=== PATIENT | female | born 1960 | race Caucasian/White ===

== ENCOUNTER 2018-12-20 21:01 | Observation (INO) | payer OTHER | END 2018-12-22 15:05 | disposition home or self-care (01) | LOC: ER FS 21:01 → 4TH 12-21 00:15 ==

== ENCOUNTER 2018-12-27 14:53 | Outpatient (RCR) | payer OTHER ==
[~2018-12-27 14:53] MED LIST changes: -CETI10CA PO; -MULT-974 PO; -NITR-65 PO; -PHEN-640 PO
[2018-12-31] MEDS ORDERED: CETI10CA PO (10:27)
[2018-12-31] MEDS ORDERED: MULT-974 PO (10:27)
[2018-12-31] MEDS ORDERED: NITR-65 PO (12:13)
[2018-12-31] MEDS ORDERED: PHEN-640 PO (12:13)
== END 2019-03-27 | disposition home or self-care (01) ==
LOC: LAB 14:53
PROVIDERS: ATTEND Urology
DX: N20.9 Urinary calculus, unspecified (principal)
CPT/HCPCS: 88300

== ENCOUNTER → 2018-12-27 | Outpatient (CLI) | payer OTHER ==
[~2018-12-27] MED LIST: ASCO-262 PO; CETI10CA PO; HYDR-34 PO; MULT-974 PO; NITR-65 PO; PHEN-640 PO; TAMS0.4C98 PO; VITA1CAP PO; VITA400C60 PO; [UNRECOGNIZED DRUG - REMARK] PO
--- NOTE | 2018-12-27 14:10 | Diagnostic Imaging Report ---
REASON FOR EXAM: STONES COMPARISON: CT abdomen and pelvis on 12/20/2018. TECHNIQUE: frontal supine views of the abdomen FINDINGS: The bowel gas pattern is nondistended. No large collection of free intraperitoneal air is seen. Scattered moderate amounts of gas and fecal material are present in the colon. Punctate calcifications are seen in the pelvis bilaterally, representing phleboliths. The previously described 4 mm urolithiasis may also be present although this is difficult to distinguish between a phlebolith. The osseous structures are age-appropriate. IMPRESSION: 1. Multiple punctate calculi in the pelvis, which may represent phleboliths and/or the previously visualized left distal urolithiasis. 2. No evidence of bowel obstruction or large collection of free intraperitoneal air. Dictated by: Dictated on workstation # [id number]
== END ==
LOC: RAD 12:44
PROVIDERS: ATTEND Urology
DX: N20.2 Calculus of kidney with calculus of ureter (principal)
CPT/HCPCS: 74018

== ENCOUNTER 2018-12-31 09:15 | Day surgery (SDC) | payer OTHER ==
[~2018-12-31] VITALS: Ht 154.9 cm; Wt 63.6 kg
[2018-12-31] VITALS (10 sets, daily range): BP systolic 90–130; BP diastolic 50–87
[2018-12-31] MEDS ORDERED: LACTATED RINGERS 1,000 ML IV PRN (09:27)
[2018-12-31] MEDS ORDERED: SCOPOLAMINE 1.5 MG (TRANSDERM-SCOP) PATCH TOP ONE (09:30)
[2018-12-31] MEDS ORDERED: FAMOTIDINE 20MG/2ML IV (PEPCID) IV ONE (09:30)
[2018-12-31] MEDS ORDERED: ONDANSETRON 4 MG/2 ML (SDV) Z0FRAN IV ONE (09:30)
[2018-12-31] MEDS ORDERED: MIDAZOLAM 2 MG/2 ML (VERSED) VIAL ONE (09:32)
[2018-12-31] MEDS ORDERED: fentaNYL INJECTION 100 MCG/2 ML AMP ONE (09:33)
--- NOTE | 2018-12-31 09:48 | Progress Note-Pre Operative ---
Pre-Operative Progress Note H&P Reviewed The H&P was reviewed, patient examined and no changes noted. Date Seen by Provider: Dec 31, 2018 Time Seen by Provider: 09:47 Date H&P Reviewed: Dec 31, 2018 Time H&P Reviewed: 09:47 Pre-Operative Diagnosis: LT DISTAL URETERAL AND RENAL STONES MARY WELLER MD Dec 31, 2018 09:48
[2018-12-31] MEDS ORDERED: WATER (STERILE) FOR INJECTION 10 ML ONE (09:49)
[2018-12-31] MEDS ORDERED: cefTRIAXone 1,000 MG IV (ROCEPHIN) VIAL ONE (09:49)
--- NOTE | 2018-12-31 09:49 | Progress Note-Post Operative ---
Post-Operative Progess Note Surgeon (s)/Gaggerman (s) Surgeon MARY WELLER MD Gaggerman: NONE Pre-Operative Diagnosis LT DISTAL URETERAL AND RENAL STONES Post-Operative Diagnosis SAME Procedure & Operative Findings Date of Procedure 12/31/18 Procedure Performed/Findings LT URETEROSCOPY WITH STONE LITHOTRIPSY AND RETROGRADE UROGRAM Anesthesia Type GENERAL Estimated Blood Loss Estimated blood loss (mL): NONE Specimens/Packing Specimens Removed NONE Packing: NONE MARY WELLER MD Dec 31, 2018 09:48
--- NOTE | 2018-12-31 09:51 | Discharge Inst-Urology ---
Discharge Inst-Urology Discharge Medications New, Converted, or Re-newed RX: RX on Chart Patient Instructions/Follow Up Plan Please make appointment to been seen in office in 6 weeks. Lab to provide patient with kit and instructions to do o.p stone risk profile Increase oral fluids for 48 hours and then as needed. Diet and Activity as tolerated. If questions or concerns contact your physician Or seek help at emergency department. MARY WELLER MD Dec 31, 2018 09:51
--- NOTE | 2018-12-31 09:52 | Diagnostic Imaging Report ---
Indication: Left ureteral stone. Study is performed prior to surgery. Supine image of the abdomen reveals mild to moderate amount of stool throughout the colon which limits evaluation. There are rounded calcifications seen bilaterally within the pelvis which most likely represent phleboliths. Possibility of distal ureteric calculus is not fully excluded. There is no evidence of bowel obstruction. No free intraperitoneal gas or pneumatosis is seen. Impression: Multiple rounded calcifications in the pelvis bilaterally are likely due to phlebolith although possibility of distal ureteric stone cannot be fully excluded. Remainder of the abdomen is unremarkable. Dictated by: Dictated on workstation # [id number]
[2018-12-31] MEDS: LACTATED RINGERS 1,000 ML IV PRN ×2 (09:53→10:58)
[2018-12-31 10:10] LABS: PHOSPHORUS 3.4 MG/DL (2.3-4.7); URIC ACID 3.4 MG/DL (2.6-7.2)
[2018-12-31] MEDS ORDERED: cefTRIAXone 1,000 MG/SWFI 10 ML IV PUSH IV ONE ×2 (10:15)
[2018-12-31] MEDS ORDERED: PHENYLEPHRINE 100 MCG/ML 10 ML (ANESTHESIA) SYR ONE (10:21)
[2018-12-31] MEDS ORDERED: LIDOCAINE PF 2% 5 ML (XYLOCAINE) VIAL ONE (10:21)
[2018-12-31] MEDS ORDERED: SEVOFLURANE (ULTANE) 15 ML INHAL SOLN ONE ×2 (10:21→10:38)
[2018-12-31] MEDS ORDERED: ONDANSETRON 4 MG/2 ML (SDV) Z0FRAN ONE (10:21)
[2018-12-31] MEDS ORDERED: proPOfol 200 MG/20 ML (DIPRIVAN) VIAL IV ONE (10:21)
[2018-12-31] MEDS ORDERED: ROCURONIUM 10 MG/ML 5 ML SYRINGE IV ONE (10:21)
[2018-12-31] MEDS ORDERED: MULT-974 PO (10:27)
[2018-12-31] MEDS ORDERED: CETI10CA PO (10:27)
[2018-12-31] MEDS ORDERED: GLYCOPYRROLATE 0.2 MG/ML (ROBINUL) 2 ML VIAL ONE (10:38)
[2018-12-31] MEDS ORDERED: NEOSTIGMINE 3 MG/3 ML VIAL ONE (10:38)
[2018-12-31] MEDS ORDERED: IOPAMIDOL 61% 30 ML (ISOVUE 300) VIAL IV ONE (10:57)
[2018-12-31] MEDS ORDERED: MEPERIDINE (DEMEROL) INJ 50 MG/ML IVP ONE (11:15)
[2018-12-31] MEDS ORDERED: morphine INJ 10 MG/ML 1ML (SYR OR VIAL) IVP ONE (11:15)
[2018-12-31] MEDS ORDERED: ONDANSETRON 4 MG/2 ML (SDV) Z0FRAN IVP PRN (11:15)
--- NOTE | 2018-12-31 11:45 | NUR ---
TO AMB SURG FROM PAR PER CART. ALERT, DENIES PAIN, BUT STATES "I HAVE TO PEE REALLY BAD." ASSIST UP TO BR, GAIT STEADY, VOIDS 400 CC CLEAR YELLOW URINE WITHOUT PROBLEM. ASSIST BACK TO ROOM, PO FLUIDS PROVIDED. BED LOW, LOCKED, RAILS UP X2. CALL LIGHT TO PT AND FAMILY AT SIDE.
[2018-12-31] MEDS ORDERED: PHEN-640 PO (12:13)
[2018-12-31] MEDS ORDERED: NITR-65 PO (12:13)
--- NOTE | 2018-12-31 13:00 | NUR ---
NO CHANGE IN ASSESSMENT, CONTINUES TO VOID CLEAR, YELLOW URINE WITHOUT PROBLEM.
--- NOTE | 2018-12-31 13:15 | NUR ---
24 HR URINE COLLECTION JUG AND INSTRUCTIONS PROVIDED TO PT PER ORDER. READY FOR DISMISSAL.
--- NOTE | 2018-12-31 20:12 | OPERATIVE REPORT ---
DATE OF SERVICE: 12/31/2018 PREOPERATIVE DIAGNOSIS: Left distal ureteral and renal stones. POSTOPERATIVE DIAGNOSIS: Left distal ureteral and renal stones. OPERATION PERFORMED: Left ureteroscopy with stone lithotripsy and retrograde urogram. SURGEON: Delon Weller MD ANESTHESIA: General. COMPLICATIONS: None. PROCEDURE: The patient under general anesthesia in the lithotomy position, genitalia were prepped and draped in the usual sterile fashion. Noted the vaginal prolapse of a 2+ cystorectocele. Cystoscope was introduced under vision. The bladder was normal. Ureteric orifices normal in shape, size and configuration with clear efflux, somewhat sluggish on the left side. Using the foroblique lens, I dilated the left ureteral orifice intramural portion to accommodate a 6.9 [place] semi-rigid ureteroscope, visualized the stone, broke it up with lithoclast then performed the retrograde urogram to confirm the integrity of the ureter. No filling defect and complete emptying of the system and there was an area that looked like a filling defect; however, it was an air bubble that was visualized by the ureteroscope as well. At that air bubble passed and a retrograde again and it was free. The ureteroscope was removed. The patient tolerated the procedure and anesthesia well and was sent to recovery room in stable condition. Job ID: [id number] DocumentID: [id number] Dictated Date: 12/31/2018 10:46:36 Marine Resource Economist Date: 12/31/2018 20:11:10 Dictated By: DELON WELLER MD
--- OUTSIDE RECORDS SUMMARY | 2018-12-31 21:53 | XMS REPORT | Continuity of Care Document ---
Author Organization Unknown Address Unknown Allergies There is no data. Medications There is no data. Problems There is no data. Procedures There is no data. Results Test Result Range CULTURE, URINE - 12/25/18 18:38 CULTURE, URINE, ROUTINE SEE NOTE NRG Encounters ACCT No. Visit Date/Time Discharge Status Pt. Type Provider Facility Loc./Unit Complaint [id number] 12/25/2018 17:00:00 12/25/2018 23:59:59 [facility] Outpatient JOSE RAFAEL JAMES LAC [facility] [id number] 12/25/2018 17:00:00 Document Registration
== END 2018-12-31 13:15 | disposition home or self-care (01) ==
LOC: SDC 09:15
PROVIDERS: ATTEND Urology
DX: N20.1 Calculus of ureter (principal); N20.0 Calculus of kidney
CPT/HCPCS: 36415; 74018; 83970; 84100; 84550; 87081

== ENCOUNTER 2019-01-07 17:07 | Outpatient (RCR) | payer OTHER ==
[~2019-01-07 17:07] MED LIST changes: +CETI10CA PO; +MULT-974 PO; +NITR-65 PO; +PHEN-640 PO
== END 2019-04-07 | disposition home or self-care (01) ==
LOC: LAB 17:07
PROVIDERS: ATTEND Urology
DX: N20.9 Urinary calculus, unspecified (principal)
CPT/HCPCS: 36415; 82140; 82340; 82507; 82570; 83735; 83945; 83986; 84105; 84133; 84300; 84392; 84560

== ENCOUNTER → 2019-08-13 | Outpatient (CLI) | payer OTHER ==
[~2019-08-13] MED LIST changes: -TAMS0.4C98 PO; +TMSL.4C PO
--- NOTE | 2019-08-13 15:02 | Diagnostic Imaging Report ---
EXAMINATION: Supine abdomen at 2:24 p.m. INDICATION: Left ureteral stone. FINDINGS: The previous exam of 12/31/2018 noted a few small calcific densities in the pelvis. These were felt to represent phleboliths. Those calcifications are again evident and do not seem to have changed significantly. There is no definite evidence for a calculus overlying either kidney, although both kidneys are obscured by bowel gas and fecal material. However, there could be a small 3 mm calculus overlying the inferior pole of the left kidney. There is no mass or organomegaly appreciated. The bowel gas pattern is nonspecific. There is no sign of bowel obstruction. The osseous structures are intact. IMPRESSION: 1. The calcifications overlying the pelvis seen previously are again evident and not significantly changed. Most likely, these are phleboliths. 2. The kidneys were not well evaluated for calculi as they are obscured by bowel gas and fecal material. However, there is a question of a small 3 mm calculus overlying the inferior pole of the left kidney. Dictated by: Dictated on workstation # [id number]
== END ==
LOC: RAD 14:04
PROVIDERS: ATTEND Urology
DX: N20.1 Calculus of ureter (principal)
CPT/HCPCS: 74018

== ENCOUNTER → 2019-10-10 | Outpatient (CLI) | payer OTHER ==
--- NOTE | 2019-10-10 15:35 | Diagnostic Imaging Report ---
INDICATION: Lower abdominal pain and pelvic pressure. TIME OF EXAM: 02:52 p.m. FINDINGS: No free air is identified. There does appear to be moderate stool in the right colon and transverse colon. The bowel gas pattern is nonobstructed. No pathological calcifications are seen. IMPRESSION: Moderate stool, perhaps owing to constipation. No other significant abnormality is seen. Dictated by: Dictated on workstation # [id number]
== END ==
LOC: RAD FS 14:42
PROVIDERS: ATTEND Nurse Practitioner Family
DX: R10.2 Pelvic and perineal pain (principal); R10.30 Lower abdominal pain, unspecified
CPT/HCPCS: 74019

== ENCOUNTER 2021-02-01 07:33 | Day surgery (SDC) | payer OTHER ==
[~2021-02-01] VITALS: Ht 154.9 cm; Wt 65.4 kg
[~2021-02-01 07:33] MED LIST changes: +CHOL400T29 PO; +MV-M1TAB20 PO; +NAPR220C11 PO; +OMEG1CAP58 PO; +ROSU10TA28 PO
[2021-02-01 07:45] VITALS: BP 114/63
[2021-02-01] MEDS ORDERED: LACTATED RINGERS 1,000 ML IV STA (08:09)
[2021-02-01] MEDS ORDERED: HURRICAINE EXT TUBE (BENZOCAINE) XX PRN (08:15)
[2021-02-01] MEDS ORDERED: LACTATED RINGERS 1,000 ML IV ONE (08:18)
--- NOTE | 2021-02-01 09:18 | Progress Note-Pre Operative ---
Pre-Operative Progress Note H&P Reviewed The H&P was reviewed, patient examined and no changes noted. Time Seen by Provider: 09:13 Date H&P Reviewed: Feb 01, 2021 Time H&P Reviewed: 09:13 Pre-Operative Diagnosis: Chronic Gastritis, Screening colon KWAME GUTIÉRREZ DO Feb 01, 2021 09:18
[2021-02-01] MEDS ORDERED: MIDAZOLAM 2 MG/2 ML (VERSED) VIAL ONE (10:22)
[2021-02-01] MEDS ORDERED: PROPOFOL INJECTION 50 ML IV ONE (10:22)
[2021-02-01 11:03] VITALS: BP 120/74
--- NOTE | 2021-02-01 11:07 | Progress Note-Post Operative ---
Post-Operative Progess Note Surgeon (s)/Senior Media Director (s) Surgeon KWAME GUTIÉRREZ DO Senior Media Director: Perez Olivera, MSIII Pre-Operative Diagnosis Chronic Gastritis, Screening colon Post-Operative Diagnosis Gastritis Hiatal hernia polyps diverticula int hemorrhoids Procedure & Operative Findings Date of Procedure 02/01/21 Procedure Performed/Findings EGD with bx Colonoscopy with Cold bx PROCEDURE NOTE: After informed consent was obtained, the patient was brought to the endoscopy suite, placed in bed in left lateral decubitus position. She was administered IV sedation by the PACU NURSE who then monitored vitals the entire time, heart rate, blood pressure and pulse ox and the scope was inserted down the mouth through the esophagus into the stomach. On the way down, noted some mild esophagitis, took a picture, pushed into the stomach, pushed past the antrum into the duodenum. Duodenum looked good. Pulled back and did a biopsy of antrum it was mildly red, then retroflexed the scope, saw a small hiatal hernia, took a picture of this and then pulled the scope into the GE junction, took another picture of the hiatal hernia and then did a biopsy of the GE junction. Pushed the scope back into the stomach, suctioned all the air out of the stomach. At this point pulled the scope up the esophagus and out the mouth. Switched camera, switched gloves, went down below, started the colonoscopy. Pushed all the way into about 140 cm to get all the way to cecum. On the way in not small polyp in Sigmoid and did a cold biopsy. Albe to get to the Cecum and took a picture of the appendiceal orifice as well as able to get into the Terminal ileum and took a picture here as well. Then started to slowly withdrew the scope, insufflating to look circumferentially at the patel starting in the cecum, up the ascending colon to the hepatic flexure, then down the transverse colon to the splenic flexure. Into the descending colon where we found two polyps and did cold biopsy for each. Down into the sigmoid where we saw some Diverticula; took pictures and finally into the rectum. Retroflexed in the rectal vault, saw some minimal internal hemorrhoids and took a picture of this. The patient tolerated the procedure and she recovered in the endoscopy suite. Anesthesia Type IV sedation by PACU NURSE Estimated Blood Loss Estimated blood loss (mL): scant Specimens/Packing Specimens Removed antral bx body of stomach GE jxn Sigmoid colon Descending colon x 2 KWAME GUTIÉRREZ DO Feb 01, 2021 11:07
[2021-02-01 11:08] VITALS: BP 119/78
--- NOTE | 2021-02-01 11:08 | Endoscopy Discharge Instruct ---
Endo Procedure/Findings Findings 1.: Gastritis 2.: Hiatal Hernia 3.: Polyp 4.: Diverticulosis, Internal Hemorrhoids Discharge Instructions - Activity: You might feel a little sleepy until tomorrow. This is due to the medicine you received to relax you. Until tomorrow, you should: NOT drive a car, operate machinery or power tools. NOT drink any alcoholic beverages. NOT make any important decisions or sign importortant papers. Do not return to work until tomorrow, unless otherwise instructed. Resume previous activities tomorrow. Diet: Start by taking liquids. If you tolerate liquids, advance to solid food. 1.: EGD in 3 years 2.: Colonscopy in 5 years Notify Physician - If you experience excessive bleeding, unusual abdominal pain, fever, or chest pain, contact your doctor immediately. KWAME GUTIÉRREZ DO Feb 01, 2021 11:08
--- NOTE | 2021-02-01 11:22 | Anesthesia-General Post-Op ---
MAC Patient Condition Mental Status/LOC: Same as Preop Cardiovascular: Satisfactory Nausea/Vomiting: Absent Respiratory: Satisfactory Pain: Controlled Complications: Absent Post Op Complications Complications None Follow Up Care/Instructions Patient Instructions None needed. Anesthesiology Discharge Order Discharge Order Patient is doing well, no complaints, stable vital signs, no apparent adverse anesthesia problems. No complications reported per nursing. NEO CANALES CRNA Feb 01, 2021 11:22
[2021-02-01 11:40] VITALS: BP 118/66
== END 2021-02-01 11:55 | disposition home or self-care (01) ==
LOC: ENDO 07:33
PROVIDERS: ATTEND Surgery
DX: K29.50 Unspecified chronic gastritis without bleeding (principal); D12.4 Benign neoplasm of descending colon; D17.5 Benign lipomatous neoplasm of intra-abdominal organs; K21.00 Gastro-esophageal reflux disease with esophagitis, without bleeding; K44.9 Diaphragmatic hernia without obstruction or gangrene; K57.30 Diverticulosis of large intestine without perforation or abscess without bleeding; K64.8 Other hemorrhoids; E78.5 Hyperlipidemia, unspecified; Z79.899 Other long term (current) drug therapy; Z90.710 Acquired absence of both cervix and uterus
CPT/HCPCS: 88305

== ENCOUNTER 2021-02-19 19:33 | Emergency (ER) | payer OTHER ==
--- NOTE | 2021-02-19 19:41 | ED GI ---
General Stated Complaint: CONSTIPATION,BACK PAIN History of Present Illness Date Seen by Provider: Feb 19, 2021 Time Seen by Provider: 19:41 Initial Comments 60-year-old female presents with some back pain and constipation. Patient reports that constipated for about 3 to 4 days with very small hard stool. Since then she developed some minor back pain associated with it. She saw urgent care this morning and was started on MiraLAX. She reports that she has had just a small loose stool today. She denies any fevers or chills. Patient had a colonoscopy around 2 weeks ago. There was no significant findings on her colonoscopy and EGD. Patient presents today because she still having issues with her constipation. Allergies and Home Medications Allergies Coded Allergies: No Known Drug Allergies (Unverified , 12/20/18) Patient Home Medication List Home Medication List Reviewed: Yes Ascorbate Calcium (Vitamin C) 500 Mg Tablet, 500 MG PO DAILY, (Reported) Entered as Reported by: TYLER SCHNEIDER on 12/21/18 0945 Cetirizine HCl (Zyrtec) 10 Mg Capsule, 10 MG PO DAILY, (Reported) Entered as Reported by: DONAVAN BOYER on 12/31/18 1027 Cholecalciferol (Vitamin D3) (Vitamin D-400) 10 Mcg Tablet, 10 MCG PO DAILY, (Reported) Entered as Reported by: ELLE GARCIA on 01/26/21 1211 Multivitamin (Multi-Vitamin Daily) 1 Each Tablet, 1 EACH PO DAILY, (Reported) Entered as Reported by: DONAVAN BOYER on 12/31/18 1027 Mv-Mn/Iron/FA/Herbal Cmplx#190 (Vitamin D3 Complete Caplet) 1 Each Tablet, 1 EACH PO DAILY, (Reported) Entered as Reported by: ELLE GARCIA on 01/26/21 1211 Naproxen Sodium (Aleve) 220 Mg Capsule, 220 MG PO PRN, (Reported) Entered as Reported by: ELLE GARCIA on 01/26/21 1211 [place]-3 Fatty Acids/Fish Oil ([place] 3 1,000 mg Softgel) 1 Each Capsule, 1 EACH PO DAILY, (Reported) Entered as Reported by: ELLE GARCIA on 01/26/21 1211 Rosuvastatin Calcium (Rosuvastatin Calcium) 10 Mg Tablet, 10 MG PO DAILY, (Reported) Entered as Reported by: ELLE GARCIA on 01/26/21 1211 Vitamin B Complex (Vitamin B Complex) 1 Each Capsule, 1 CAP PO DAILY, (Reported) Entered as Reported by: TYLER SCHNEIDER on 12/21/18 0945 Vitamin E Acetate (Vitamin E) 400 Unit Capsule, 400 UNIT PO DAILY, (Reported) Entered as Reported by: TYLER SCHNEIDER on 12/21/18 0945 Review of Systems Review of Systems Constitutional: No chills, No fever Respiratory: No Symptoms Reported Cardiovascular: No Symptoms Reported Gastrointestinal: See HPI, Constipated Genitourinary: No Symptoms Reported Musculoskeletal: see HPI Skin: no symptoms reported Psychiatric/Neurological: No Symptoms Reported Endocrine: No Symptoms Reported Hematologic/Lymphatic: No Symptoms Reported Past Igqpxag-Gbzfqz-Ajnutj Hx Seasonal Allergies Seasonal Allergies: No Past Medical History Surgeries: Yes (PONV) Section, Hysterectomy Respiratory: No Cardiac: No Neurological: No Genitourinary: No Kidney Stones Gastrointestinal: No Musculoskeletal: No Endocrine: No HEENT: No Cancer: No Psychosocial: No Integumentary: No Blood Disorders: No Family Medical History Patient reports no known family medical history. No Pertinent Family Hx Physical Exam Vital Signs Vital Signs - First Documented 02/19/21 19:37 Temp 36.6 Pulse 73 Resp 18 Pulse Ox 98 O2 Delivery Room Air Capillary Refill : Height/Weight/BMI Height: 5'1.00" Weight: 140lbs. 4.0oz. [id number]; 27.25 BMI Method:Stated General Appearance: WD/WN, no apparent distress Respiratory: lungs clear, normal breath sounds Cardiovascular: normal peripheral pulses, regular rate, rhythm Gastrointestinal: non tender, soft Extremities: normal range of motion, non-tender Neurologic/Psychiatric: alert, normal mood/affect, oriented x 3 Progress/Results/Core Measures Results/Orders My Orders Orders - SPAULDING,KESHA L DO Abdomen Flat & Upright/Decub (02/19/21 19:41) Vital Signs/I&O 02/19/21 19:37 Temp 36.6 Pulse 73 Resp 18 B/P (MAP) Pulse Ox 98 O2 Delivery Room Air Departure Impression Primary Impression: Constipation Qualified Codes: K59.00 - Constipation, unspecified Disposition: 01 HOME, SELF-CARE Condition: Stable Departure-Patient Inst. Referrals: [facility] [place] (PCP) Primary Care Physician TYLER CORMIER APRN (Family) Primary Care Physician Patient Instructions: Constipation, Adult (DC) Add. Discharge Instructions: Drink plenty of fluids You have been sent home with a bottle of mag citrate that you should drink this evening. If you are still having constipation issues in the morning continue MiraLAX 4-5 times daily Frequent ambulation You may use some nxte-ren-bwpruru suppositories and laxatives to also help with your stool. KESHA SPAULDING DO Feb 19, 2021 19:41
--- NOTE | 2021-02-19 20:00 | Diagnostic Imaging Report ---
REASON FOR EXAM: Constipation. Low back pain. COMPARISON: 10/10/2019. TECHNIQUE: Two views of the abdomen. FINDINGS: The bowel gas pattern is nondistended. No large collection of free intraperitoneal air is seen. A moderate amount of gas and fecal material are present in the colon. No abnormal extraosseous calcification is present. The osseous structures are age-appropriate. IMPRESSION: 1. Moderate amount of stool in the colon which can be seen with constipation. 2. No evidence of bowel obstruction or large collection of free intraperitoneal air. Dictated by: Dictated on workstation # [id number]
[2021-02-19] MEDS ORDERED: MAGNESIUM CITRATE 300 ML BTL PO ONE (20:15)
== END 2021-02-19 20:11 | disposition home or self-care (01) ==
LOC: EDUNIT# 19:33 → ER FS 19:35
DX: K59.00 Constipation, unspecified (principal)
CPT/HCPCS: 74019

== ENCOUNTER 2021-02-21 08:52 | Emergency (ER) | payer OTHER ==
[~2021-02-21] VITALS: Ht 154.9 cm; Wt 63.5 kg
[2021-02-21] MEDS ORDERED: KETOROLAC 30 MG/ML VIAL IVP STA (09:05)
[2021-02-21] MEDS ORDERED: LACTATED RINGERS 1,000 ML IV ONE (09:15)
[2021-02-21 09:26] LABS: BASOPHILS % (AUTO) 0 % (0-10); EOSINOPHILS # (AUTO) 0.1 10^3/uL (0.0-0.3); EOSINOPHILS % (AUTO) 2 % (0-10); HEMATOCRIT 44 % (35-52); HEMOGLOBIN 14.1 g/dL (11.5-16.0); LYMPHOCYTES # (AUTO) 2.3 10^3/uL (1.0-4.0); LYMPHOCYTES % (AUTO) 31 % (12-44); MEAN CORPUSCULAR HEMOGLOBIN 29 pg (25-34); MEAN CORPUSCULAR HGB CONC 32 g/dL (32-36); MEAN CORPUSCULAR VOLUME 91 fL (80-99); MEAN PLATELET VOLUME 8.9 fL (9.0-12.2); MONOCYTES # (AUTO) 0.7 10^3/uL (0.0-1.0); MONOCYTES % (AUTO) 9 % (0-12); NEUTROPHILS # (AUTO) 4.4 10^3/uL (1.8-7.8); NEUTROPHILS % (AUTO) 59 % (42-75); PLATELET COUNT 381 10^3/uL (130-400); WHITE BLOOD COUNT 7.5 10^3/uL (4.3-11.0)
[2021-02-21 09:30] LABS: ALBUMIN 4.3 GM/DL (3.2-4.5)
[2021-02-21 09:32] LABS: CALCIUM 9.7 MG/DL (8.5-10.1)
--- NOTE | 2021-02-21 09:32 | ED General ---
General Chief Complaint: Back Problems Stated Complaint: BACK PAIN, CONSTIPATION Source of Information: Patient History of Present Illness Date Seen by Provider: Feb 21, 2021 Time Seen by Provider: 09:00 Initial Comments PT ARRIVES VIA POV FROM HOME PT HAD ROUTINE EGD AND SCREENING COLONOSCOPY WITH POLPYECTOMY BY DR. GUTIÉRREZ ON 02/01/21--FINDINGS OF HIATAL HERNIA, GASTRITIS, COLON POLYPS, INTERNAL HEMORRHOIDS AND DIVERTICULAR DISEASE PT STATES SHE HAS HAD CONSTIPATION SINCE SHE HAD COLONOSCOPY--PASSING A FEW SMALL HARD RAKESH STATES SHE HAS BEEN HAVING SMALL HARD STOOLS SINCE THEN HAS HAD RIGHT LOWER BACK AND RIGHT FLANK PAIN SINCE 02/11/21 NO RADIATION OF PAIN PAIN WAXES AND WANES, COMES AND GOES SINCE THEN PAIN IS WORSE WITH ANY MOVEMENTS GOT BAD ON MONDAY AND WENT TO "URGENT CARE" IN [place] ON Monday02/19/21 AND THEN WENT TO [place] ER. HAD ABD XRAY DONE AND TOLD TO TAKE MAG CITRATE PT TOOK MIRALAX ON MONDAY, MONDAY, MONDAY, AND "A LITTLE BIT" ON MONDAY TOOK MAG CITRATE YESTERDAY, AND USED AN ENEMA YESTERDAY SINCE YESTERDAY SHE HAS HAD LIQUID STOOLS ALL DAY YESTERDAY. NO RECTAL PAIN OR BLEEDING PT WORKS AT [employer], LIFTS BOXES/TOTES ALL DAY, BUT NO UNUSUAL ACTIVITY OR LIFTING MORE OR HEAVIER THINGS THAN NORMAL NO PRIOR BACK PROBLEMS PT DOES NOT HAVE ANY ABDOMINAL PAIN SLIGHT NAUSEA, NO VOMITING YESTERDAY, NONE TODAY NO FEVER NO PARESTHESIAS OR MOTOR DEFICITS HAS HISTORY OF KIDNEY STONES AND HAS HAD ONE SURGICALLY REMOVED IN THE PAST HAS NOT SEEN DR. WELLER/UROLOGIST IN A COUPLE OF YEARS HAS HAD URINARY FREQUENCY, BUT NO DIFFICULTY OR PAIN ON URINATION, NO HEMATURIA PT HAS NOT RECEIVED COVID-19 VACCINE. PCP: [facility], ALYSSA CORMIER UROLOGIST: DR. WELLER Allergies and Home Medications Allergies Coded Allergies: No Known Drug Allergies (Unverified , 12/20/18) Patient Home Medication List Home Medication List Reviewed: Yes Ascorbate Calcium (Vitamin C) 500 Mg Tablet, 500 MG PO DAILY, (Reported) Entered as Reported by: TYLER SCHNEIDER on 12/21/18 0945 Cetirizine HCl (Zyrtec) 10 Mg Capsule, 10 MG PO DAILY, (Reported) Entered as Reported by: DONAVAN BOYER on 12/31/18 1027 Cholecalciferol (Vitamin D3) (Vitamin D-400) 10 Mcg Tablet, 10 MCG PO DAILY, (Re ported) Entered as Reported by: ELLE GARCIA on 01/26/21 1211 Cyclobenzaprine HCl (Cyclobenzaprine HCl) 10 Mg Tablet, 10 MG PO Q8H PRN for SPASMS Prescribed by: DIANE HOFFMAN on 02/21/21 1011 Multivitamin (Multi-Vitamin Daily) 1 Each Tablet, 1 EACH PO DAILY, (Reported) Entered as Reported by: DONAVAN BOYER on 12/31/18 1027 Mv-Mn/Iron/FA/Herbal Cmplx#190 (Vitamin D3 Complete Caplet) 1 Each Tablet, 1 EACH PO DAILY, (Reported) Entered as Reported by: ELLE GARCIA on 01/26/21 1211 Naproxen (Naproxen) 500 Mg Tablet.dr, 500 MG PO BID Prescribed by: DIANE HOFFMAN on 02/21/21 1011 Naproxen Sodium (Aleve) 220 Mg Capsule, 220 MG PO PRN, (Reported) Entered as Reported by: ELLE GARCIA on 01/26/21 1211 Minong-3 Fatty Acids/Fish Oil (Minong 3 1,000 mg Softgel) 1 Each Capsule, 1 EACH PO DAILY, (Reported) Entered as Reported by: ELLE GARCIA on 01/26/21 1211 Rosuvastatin Calcium (Rosuvastatin Calcium) 10 Mg Tablet, 10 MG PO DAILY, (Reported) Entered as Reported by: ELLE GARCIA on 01/26/21 1211 Vitamin B Complex (Vitamin B Complex) 1 Each Capsule, 1 CAP PO DAILY, (Reported) Entered as Reported by: TYLER SCHNEIDER on 12/21/18 0945 Vitamin E Acetate (Vitamin E) 400 Unit Capsule, 400 UNIT PO DAILY, (Reported) Entered as Reported by: TYLER SCHNEIDER on 12/21/18 0945 Review of Systems Review of Systems Constitutional: no symptoms reported Respiratory: no symptoms reported Cardiovascular: no symptoms reported Gastrointestinal: see HPI; No abdominal pain; constipation; No diarrhea; nausea; No vomiting Genitourinary: see HPI; No dysuria; frequency; No hematuria, No hesitancy, No incontinence, No pain Musculoskeletal: see HPI, back pain Skin: no symptoms reported; No rash Psychiatric/Neurological: No Symptoms Reported Hematologic/Lymphatic: No Symptoms Reported Immunological/Allergic: no symptoms reported Past Yisnwnc-Tbrkjp-Zvgzei Hx Patient Social History Tobacco Use?: No (SMOKED A TEEN) Smoking Status: Former Smoker Use of E-Cig and/or Vaping dev: No Substance use?: No Alcohol Use?: No Pt feels they are or have been: No Seasonal Allergies Seasonal Allergies: No Past Medical History Surgery/Hospitalization HX: HYSTERECTOMY/BILATERAL SALPINGO-OOPHORECTOMY X 2 THINKS HER APPENDIX WAS REMOVED WITH LEFT KIDNEY STONE REMOVAL BY DR. WELLER 12/2018--URETEROSCOPY WITH STONE LITHOTRIPSY Surgeries: Yes (PONV) Section, Hysterectomy, Renal Respiratory: No Cardiac: No Neurological: No Genitourinary: No Kidney Stones Gastrointestinal: No Musculoskeletal: No Endocrine: No HEENT: No Cancer: No Psychosocial: No Integumentary: No Blood Disorders: No Family Medical History Patient reports no known family medical history. No Pertinent Family Hx Physical Exam Vital Signs Vital Signs - First Documented 02/21/21 08:57 Temp 36.1 Pulse 89 Resp 18 B/P (MAP) 134/71 (92) Pulse Ox 97 O2 Delivery Room Air Capillary Refill : Height, Weight, BMI Height: 5'1.00" Weight: 140lbs. 4.0oz. [id number]; 27.25 BMI Method:Stated General Appearance: No Apparent Distress, WD/WN Respiratory: Normal Breath Sounds, No Accessory Muscle Use, No Respiratory Distress Cardiovascular: Regular Rate, Rhythm, No Edema, No JVD, No Murmur, Normal Peripheral Pulses Gastrointestinal: Normal Bowel Sounds, No Organomegaly, Non Tender, Soft Back: No Vertebral Tenderness, CVA Tenderness (R) Extremity: Normal Inspection Neurologic/Psychiatric: Alert, Oriented x3, No Motor/Sensory Deficits, library specialist II- XII Norm as Tested Skin: Normal Color, Warm/Dry; No Rash Progress/Results/Core Measures Suspected Sepsis SIRS Temperature: Pulse: Respiratory Rate: Laboratory Tests 02/21/21 09:10: White Blood Count 7.5 Blood Pressure / Mean: Laboratory Tests 02/21/21 09:10: Creatinine 0.68, Platelet Count 381, Total Bilirubin 0.5 Results/Orders Lab Results Laboratory Tests Test 02/21/21 09:10 02/21/21 09:43 Range/Units White Blood Count 7.5 4.3-11.0 10^3/uL Red Blood Count 4.88 3.80-5.11 10^6/uL Hemoglobin 14.1 11.5-16.0 g/dL Hematocrit 44 35-52 % Mean Corpuscular Volume 91 80-99 fL Mean Corpuscular Hemoglobin 29 25-34 pg Mean Corpuscular Hemoglobin Concent 32 32-36 g/dL Red Cell Distribution Width 12.2 10.0-14.5 % Platelet Count 381 130-400 10^3/uL Mean Platelet Volume 8.9 L 9.0-12.2 fL Immature Granulocyte % (Auto) 0 % Neutrophils (%) (Auto) 59 42-75 % Lymphocytes (%) (Auto) 31 12-44 % Monocytes (%) (Auto) 9 0-12 % Eosinophils (%) (Auto) 2 0-10 % Basophils (%) (Auto) 0 0-10 % Neutrophils # (Auto) 4.4 1.8-7.8 10^3/uL Lymphocytes # (Auto) 2.3 1.0-4.0 10^3/uL Monocytes # (Auto) 0.7 0.0-1.0 10^3/uL Eosinophils # (Auto) 0.1 0.0-0.3 10^3/uL Basophils # (Auto) 0.0 0.0-0.1 10^3/uL Immature Granulocyte # (Auto) 0.0 0.0-0.1 10^3/uL Sodium Level 138 135-145 MMOL/L Potassium Level 4.0 3.6-5.0 MMOL/L Chloride Level 103 98-107 MMOL/L Carbon Dioxide Level 27 21-32 MMOL/L Anion Gap 8 5-14 MMOL/L Blood Urea Nitrogen 16 7-18 MG/DL Creatinine 0.68 0.60-1.30 MG/DL Estimat Glomerular Filtration Rate 89 BUN/Creatinine Ratio 24 Glucose Level 107 H 70-105 MG/DL Calcium Level 9.7 8.5-10.1 MG/DL Corrected Calcium 9.5 8.5-10.1 MG/DL Total Bilirubin 0.5 0.1-1.0 MG/DL Aspartate Amino Transf (AST/SGOT) 18 5-34 U/L Alanine Aminotransferase (ALT/SGPT) 29 0-55 U/L Alkaline Phosphatase 60 40-136 U/L Total Protein 8.2 6.4-8.2 GM/DL Albumin 4.3 3.2-4.5 GM/DL Urine Color YELLOW Urine Clarity CLOUDY Urine pH 8.0 5-9 Urine Specific [place] 1.020 1.016-1.022 Urine Protein NEGATIVE NEGATIVE Urine Glucose (UA) NEGATIVE NEGATIVE Urine Ketones NEGATIVE NEGATIVE Urine Nitrite NEGATIVE NEGATIVE Urine Bilirubin NEGATIVE NEGATIVE Urine Urobilinogen 0.2 < = 1.0 MG/DL Urine Leukocyte Esterase 1+ H NEGATIVE Urine RBC (Auto) NEGATIVE NEGATIVE Urine RBC NONE /HPF Urine WBC 2-5 /HPF Urine Squamous Epithelial Cells 5-10 /HPF Urine Crystals PRESENT H /LPF Urine Amorphous Sediment MOD SHABBIR PHOSPHATE H /LPF Urine Bacteria NEGATIVE /HPF Urine Casts NONE /LPF Urine Mucus NEGATIVE /LPF Urine Culture Indicated NO My Orders Orders - DIANE HOFFMAN DO Ed Iv/Invasive Line Start (02/21/21 09:05) Ct Abd/Pelvis Wo(Kidney Stone) (02/21/21 09:05) Cbc With Automated Diff (02/21/21 09:05) Comprehensive Metabolic Panel (02/21/21 09:05) Ua Culture If Indicated (02/21/21 09:05) Ed Iv/Invasive Line Start (02/21/21 09:05) Lactated Ringers (Lr 1000 Ml Iv Solution (02/21/21 09:15) Ketorolac Injection (Toradol Injection) (02/21/21 09:05) Abdomen/Kub 1view (02/21/21 09:09) Medications Given in ED Current Medications Medications Dose Ordered Sig/Kiki Route Start Time Stop Time Status Last Admin Dose Admin Lactated Ringer's 1,000 ml @ 0 mls/hr Q0M ONCE IV 02/21/21 09:15 02/21/21 09:16 DC 02/21/21 09:15 0 MLS/HR Vital Signs/I&O 02/21/21 02/21/21 08:57 10:33 Temp 36.1 Pulse 89 89 Resp 18 18 B/P (MAP) 134/71 (92) 104/62 Pulse Ox 97 97 O2 Delivery Room Air Room Air Capillary Refill : Progress Note : Progress Note GIVEN IV FLUIDS AND TORADOL WITH SOME RELIEF OF PAIN VERY MINIMAL STOOL IN RIGHT PROXIMAL COLON, OTHERWISE MOST OF COLON IS COMPLETELY CLEAR OF STOOL NOW. Diagnostic Imaging Comments KUB--PER RADIOLOGIST REPORT AT 0939 FINDINGS: There are no dilated loops of small bowel. There is gas throughout the nondilated colon with gas present in the rectum. No free air is seen. IMPRESSION: No dilated bowel. CT ABDOMEN/PELVIS--PER RADIOLOGIST REPORT AT 1003 FINDINGS: The visualized lung bases are clear. Tiny hiatal hernia. 6 mm hypodensity is identified within the left hepatic lobe, incompletely evaluated on this examination. The liver is otherwise unremarkable. The unenhanced spleen is unremarkable. The adrenal glands are unremarkable. The unenhanced pancreas is unremarkable. The gallbladder is unremarkable. The right kidney and right ureter are unremarkable. Nonobstructing small left renal calculi. Otherwise, the left kidney and left ureter are otherwise unremarkable. No aneurysmal dilatation of the abdominal aorta. Tiny fat-containing umbilical hernia. The appendix is unremarkable. The urinary bladder is unremarkable. The uterus is not visualized, likely surgically absent. No abnormal adnexal mass lesion. No bowel obstruction or pneumatosis. No significant adenopathy, free air, or free fluid within the abdomen or pelvis. Mild scattered osseous degenerative changes without acute osseous abnormality. IMPRESSION: Nonobstructing small left renal calculi. Tiny hiatal hernia. Indeterminate subcentimeter hepatic hypodensity, incompletely evaluated on this exam. Reviewed: Reviewed by Me Departure Impression Primary Impression: Right flank pain Disposition: 01 HOME, SELF-CARE Condition: Improved Departure-Patient Inst. Decision time for Depature: 10:05 Referrals: [facility] (PCP) Primary Care Physician TYLER CORMIER APRN (Family) Primary Care Physician Patient Instructions: Flank Pain (DC) Add. Discharge Instructions: MOIST HEAT TO BACK AT 20 MINUTE INTERVALS NO LIFTING OVER 20 LBS, NO TWISTING OR BENDING AT WAIST YOU MAY PUT OVER THE COUNTER LIDOCAINE PATCH ON THE AREA FOR PAIN FOLLOW UP WITH [facility] IN 2-3 DAYS FOR FURTHER CARE All discharge instructions reviewed with patient and/or family. Voiced understanding. Scripts Cyclobenzaprine HCl (Cyclobenzaprine HCl) 10 Mg Tablet 10 MG PO Q8H PRN for SPASMS, #15 TAB 0 Refills Prov: DIANE HOFFMAN DO 02/21/21 Naproxen (Naproxen) 500 Mg Tablet.dr 500 MG PO BID, #20 TAB Prov: DIANE HOFFMAN DO 02/21/21 Work/School Note: Work Release Form Date Seen in the Emergency Department: Feb 21, 2021 Return to Work: Feb 24, 2021 DIANE HOFFMAN DO Feb 21, 2021 09:32
[2021-02-21 09:33] LABS: TOTAL PROTEIN 8.2 GM/DL (6.4-8.2)
--- NOTE | 2021-02-21 09:33 | Diagnostic Imaging Report ---
EXAMINATION: Abdomen 1 view HISTORY: abdomen pain COMPARISON: 02/19/2021 FINDINGS: There are no dilated loops of small bowel. There is gas throughout the nondilated colon with gas present in the rectum. No free air is seen. IMPRESSION: No dilated bowel. Dictated by: Dictated on workstation # [id number]
[2021-02-21 09:35] LABS: BILIRUBIN,TOTAL 0.5 MG/DL (0.1-1.0)
[2021-02-21 09:37] LABS: CREATININE SERUM 0.68 MG/DL (0.60-1.30)
--- NOTE | 2021-02-21 09:47 | Diagnostic Imaging Report ---
PROCEDURE: CT urinary tract, rule out kidney stone. TECHNIQUE: Multiple contiguous axial images were obtained through the abdomen and pelvis without the use of intravenous contrast. Auto Exposure Controls were utilized during the CT exam to meet ALARA standards for radiation dose reduction. INDICATION: Left flank pain, kidney stones COMPARISON: 12/20/2018 FINDINGS: The visualized lung bases are clear. Tiny hiatal hernia. 6 mm hypodensity is identified within the left hepatic lobe, incompletely evaluated on this examination. The liver is otherwise unremarkable. The unenhanced spleen is unremarkable. The adrenal glands are unremarkable. The unenhanced pancreas is unremarkable. The gallbladder is unremarkable. The right kidney and right ureter are unremarkable. Nonobstructing small left renal calculi. Otherwise, the left kidney and left ureter are otherwise unremarkable. No aneurysmal dilatation of the abdominal aorta. Tiny fat-containing umbilical hernia. The appendix is unremarkable. The urinary bladder is unremarkable. The uterus is not visualized, likely surgically absent. No abnormal adnexal mass lesion. No bowel obstruction or pneumatosis. No significant adenopathy, free air, or free fluid within the abdomen or pelvis. Mild scattered osseous degenerative changes without acute osseous abnormality. IMPRESSION: Nonobstructing small left renal calculi. Tiny hiatal hernia. Indeterminate subcentimeter hepatic hypodensity, incompletely evaluated on this exam. Additional findings as described above. Dictated by: Dictated on workstation # [id number]
[2021-02-21 09:50] LABS: BILIRUBIN,URINE NEGATIVE (NEGATIVE); CLARITY,URINE CLOUDY; COLOR,URINE YELLOW; GLUCOSE, URINE (UA) NEGATIVE (NEGATIVE); KETONES,URINE NEGATIVE (NEGATIVE); LEUKOCYTE ESTERASE ,URINE 1+ (NEGATIVE); NITRITE,URINE NEGATIVE (NEGATIVE); PROTEIN,URINE NEGATIVE (NEGATIVE)
[2021-02-21 10:00] LABS: AMORPHOUS SEDIMENT,UR MOD AMOR PHOSPHATE /LPF; BACTERIA,URINE NEGATIVE /HPF
[2021-02-21] MEDS ORDERED: NAPR500T8 PO (10:11)
[2021-02-21] MEDS ORDERED: CYCL10TA9 PO (10:11)
[2021-02-21 10:33] VITALS: BP 104/62
== END 2021-02-21 10:33 | disposition home or self-care (01) ==
LOC: EDUNIT# 08:52 → ER 08:54
DX: R10.9 Unspecified abdominal pain (principal); Z87.891 Personal history of nicotine dependence
CPT/HCPCS: 36415; 74018; 74176; 80053; 81000; 85025

== ENCOUNTER → 2021-03-03 | Outpatient (CLI) | payer OTHER ==
[~2021-03-03] MED LIST changes: +CYCL10TA9 PO; +NAPR500T8 PO
--- NOTE | 2021-03-03 13:34 | Diagnostic Imaging Report ---
INDICATION: Constipation x2 weeks. COMPARISON: 02/21/2021. FINDINGS: Two frontal supine radiographic views of the abdomen and pelvis were obtained. Small bowel loops are nondistended. There is a moderate amount of air and stool within the ascending and transverse colon. No large collection of free intraperitoneal air is identified. No unexpected extraosseous calcifications or radiopaque foreign bodies are seen. Included portions of the lung bases are clear. IMPRESSION: 1. Nonobstructed small bowel gas pattern. 2. Moderate colonic air and stool. Please correlate for constipation. Dictated by: Dictated on workstation # [id number]
== END ==
LOC: RAD 11:33
PROVIDERS: ATTEND Nurse Practitioner Family
DX: K59.00 Constipation, unspecified (principal)
CPT/HCPCS: 74018

== ENCOUNTER 2022-12-17 23:25 | Emergency (ER) | payer OTHER ==
[~2022-12-17] VITALS: Ht 154.9 cm; Wt 65.5 kg
[~2022-12-17 23:25] MED LIST changes: +CYCL10TA25 PO; -CYCL10TA9 PO
[2022-12-18] MEDS ORDERED: NS IV 1000 ML 1,000 ML IV STA (00:01)
[2022-12-18] MEDS ORDERED: KETOROLAC 15 MG/ML VIAL IVP STA (00:01)
[2022-12-18 00:22] LABS: BASOPHILS % (AUTO) 0 % (0-10); EOSINOPHILS # (AUTO) 0.1 10^3/uL (0.0-0.3); EOSINOPHILS % (AUTO) 1 % (0-10); HEMATOCRIT 39 % (35-52); HEMOGLOBIN 12.6 g/dL (11.5-16.0); LYMPHOCYTES # (AUTO) 2.3 10^3/uL (1.0-4.0); LYMPHOCYTES % (AUTO) 13 % (12-44); MEAN CORPUSCULAR HEMOGLOBIN 29 pg (25-34); MEAN CORPUSCULAR HGB CONC 32 g/dL (32-36); MEAN CORPUSCULAR VOLUME 91 fL (80-99); MEAN PLATELET VOLUME 8.6 fL (9.0-12.2); MONOCYTES # (AUTO) 1.9 10^3/uL (0.0-1.0); MONOCYTES % (AUTO) 11 % (0-12); NEUTROPHILS # (AUTO) 12.9 10^3/uL (1.8-7.8); NEUTROPHILS % (AUTO) 75 % (42-75); PLATELET COUNT 332 10^3/uL (130-400); WHITE BLOOD COUNT 17.3 10^3/uL (4.3-11.0)
[2022-12-18] MEDS ORDERED: ONDANSETRON 4 MG/2 ML (SDV) Z0FRAN IVP STA (00:22)
[2022-12-18] MEDS ORDERED: cefTRIAXone IV/IM 1,000 MG in NS (IVPB) 50 ML IV STA (00:22)
[2022-12-18 00:23] LABS: BILIRUBIN,URINE NEGATIVE (NEGATIVE); COLOR,URINE YELLOW; GLUCOSE, URINE (UA) NEGATIVE (NEGATIVE); KETONES,URINE NEGATIVE (NEGATIVE); LEUKOCYTE ESTERASE ,URINE 2+ (NEGATIVE); NITRITE,URINE NEGATIVE (NEGATIVE); PH,URINE 7.5 (5-9); PROTEIN,URINE 1+ (NEGATIVE)
--- NOTE | 2022-12-18 00:25 | ED Abdominal Pain ---
General Chief Complaint: Abdominal/GI Problems Stated Complaint: UTI|GALLBLADDER PAIN Source of Information: Patient History of Present Illness Date Seen by Provider: Dec 18, 2022 Time Seen by Provider: 00:12 Initial Comments 62-year-old female presenting with complaints of pain with urination, right upper quadrant and flank pain, nausea and vomiting. She was seen earlier today at the walk-in clinic and diagnosed with a UTI and started on Macrobid. She has had 1 dose of medication. She was feeling more weak and fatigued. She felt like her infection was getting worse. She was concerned that she was having a gallbladder attack. She states that the walk-in care had told her that she may have a kidney stone or gallstone into go to the emergency department if her symptoms got worse. She has subjective fever and chills. She states that she has had pain in her low back and going into the right shoulder for over a week. Timing/Duration: 1 Week Severity/Quality: Severe, Sharp, Stabbing Location: Flank Radiation: Back Modifying Factors: Worsens With Movement, Worsens With Palpation Associated Symptoms: Back Pain (Acute on chronic low back pain); No Chest Pain, No Diaphoresis; Fever/Chills (Subjective), Fatigue; No Heartburn; Nausea/V omiting; No Shortness of Air, No Swelling/Mass in Abdomen, No Syncope Allergies and Home Medications Allergies Coded Allergies: No Known Drug Allergies (Unverified , 12/20/18) Patient Home Medication List Home Medication List Reviewed: Yes Ascorbate Calcium (Vitamin C) 500 Mg Tablet, 500 MG PO DAILY, (Reported) Entered as Reported by: TYLER SCHNEIDER on 12/21/18 0945 Cetirizine HCl (Zyrtec) 10 Mg Capsule, 10 MG PO DAILY, (Reported) Entered as Reported by: DONAVAN BOYER on 12/31/18 1027 Cholecalciferol (Vitamin D3) (Vitamin D-400) 10 Mcg Tablet, 10 MCG PO DAILY, (Reported) Entered as Reported by: ELLE GARCIA on 01/26/21 1211 Cyclobenzaprine HCl (Cyclobenzaprine HCl) 10 Mg Tablet, 10 MG PO Q8H PRN for SPASMS Prescribed by: DIANE HOFFMAN on 02/21/21 1011 Hydrocodone/Acetaminophen (Hydrocodone-Acetamin 5-325 mg) 5 Mg-325 Mg Tablet, 1 TAB PO Q4H PRN for PAIN SEVERE Prescribed by: CHRISTIAN Eastman ENYART on 12/18/22 0241 Montelukast Sodium (Montelukast Sodium) 10 Mg Tablet, 10 MG PO DAILY, (Reported) Entered as Reported by: SYLVIA BURGOS on 12/18/22133 Last Action: New Order Multivitamin (Multi-Vitamin Daily) 1 Each Tablet, 1 EACH PO DAILY, (Reported) Entered as Reported by: DONAVAN BOYER on 12/31/18 1027 Mv-Mn/Iron/FA/Herbal Cmplx#190 (Vitamin D3 Complete Caplet) 1 Each Tablet, 1 EACH PO DAILY, (Reported) Entered as Reported by: ELLE GARCIA on 01/26/21 1211 Naproxen (Naproxen) 500 Mg Tablet.dr, 500 MG PO BID Prescribed by: DIANE HOFFMAN on 02/21/21 1011 Naproxen Sodium (Aleve) 220 Mg Capsule, 220 MG PO PRN, (Reported) Entered as Reported by: ELLE GARCIA on 01/26/21 1211 Nitrofurantoin Monohyd/M-Cryst (Nitrofurantoin Mclean-Mcr 100 mg) 100 Mg Capsule, 100 MG PO BID, (Reported) Entered as Reported by: SYLVIA BURGOS on 12/18/22133 Last Action: New Order [place]-3 Fatty Acids/Fish Oil ([place] 3 1,000 mg Softgel) 1 Each Capsule, 1 EACH PO DAILY, (Reported) Entered as Reported by: ELLE GARCIA on 01/26/21 1211 Ondansetron (Ondansetron Odt) 4 Mg Tab.rapdis, 4 MG PO Q6H PRN for NAUSEA/VOMITING Prescribed by: CHRISTIAN Eastman ENYART on 12/18/22 0240 Rosuvastatin Calcium (Rosuvastatin Calcium) 10 Mg Tablet, 10 MG PO DAILY, (Re ported) Entered as Reported by: ELLE GARCIA on 01/26/21 1211 Vitamin B Complex (Vitamin B Complex) 1 Each Capsule, 1 CAP PO DAILY, (Reported) Entered as Reported by: TYLER SCHNEIDER on 12/21/18 0945 Vitamin E Acetate (Vitamin E) 400 Unit Capsule, 400 UNIT PO DAILY, (Reported) Entered as Reported by: TYLER SCHNEIDER on 12/21/18 0945 Review of Systems Review of Systems Constitutional: see HPI EENTM: No Symptoms Reported Respiratory: No Symptoms Reported Cardiovascular: No Symptoms Reported Gastrointestinal: See HPI Genitourinary: See HPI Musculoskeletal: see HPI Skin: No rash Psychiatric/Neurological: Headache Past Uxrteyo-Zrztav-Uzmutt Hx Seasonal Allergies Seasonal Allergies: No Past Medical History Surgery/Hospitalization HX: HYSTERECTOMY/BILATERAL SALPINGO-OOPHORECTOMY X 2 THINKS HER APPENDIX WAS REMOVED WITH LEFT KIDNEY STONE REMOVAL BY DR. WELLER 12/2018--URETEROSCOPY WITH STONE LITHOTRIPSY Surgeries: Yes (PONV) Section, Hysterectomy, Renal Respiratory: No Cardiac: No Neurological: No Genitourinary: No Kidney Stones Gastrointestinal: No Musculoskeletal: No Endocrine: No HEENT: No Cancer: No Psychosocial: No Integumentary: No Blood Disorders: No Family Medical History Patient reports no known family medical history. No Pertinent Family Hx Physical Exam Vital Signs Vital Signs - First Documented 12/17/22 23:30 Temp 38.0 Pulse 126 Resp 20 B/P (MAP) 121/77 (92) Pulse Ox 97 O2 Delivery Room Air Capillary Refill : Height/Weight/BMI Height: 5'1.00" Weight: 140lbs. 4.0oz. [id number]; 26.00 BMI Method:Stated General Appearance: WD/WN, mild distress HEENT: PERRL/EOMI, pharynx normal Neck: non-tender, full range of motion, supple, normal inspection Respiratory: chest non-tender, lungs clear, normal breath sounds, no respiratory distress, no accessory muscle use Cardiovascular: normal peripheral pulses, regular rate, rhythm Gastrointestinal: normal bowel sounds, soft, no pulsatile mass; No distended, No guarding, No rebound; tenderness (Right upper quadrant and right flank) Rectal: deferred Extremities: normal range of motion, non-tender, normal capillary refill Back: CVA tenderness (R) Neurologic/Psychiatric: alert, oriented x 3 Skin: normal color, warm/dry Focused Exam Lactate Level 12/18/22 01:48: Lactic Acid Level 1.33 Lactic Acid Level Laboratory Tests Test 12/18/22 01:48 Lactic Acid Level 1.33 MMOL/L (0.50-2.00) Progress/Results/Core Measures Results/Orders Lab Results Laboratory Tests Test 12/17/22 23:30 12/18/22 00:20 12/18/22 01:48 Range/Units Urine Color YELLOW Urine Clarity CLOUDY Urine pH 7.5 5-9 Urine Specific [place] 1.015 L 1.016-1.022 Urine Protein 1+ H NEGATIVE Urine Glucose (UA) NEGATIVE NEGATIVE Urine Ketones NEGATIVE NEGATIVE Urine Nitrite NEGATIVE NEGATIVE Urine Bilirubin NEGATIVE NEGATIVE Urine Urobilinogen 0.2 < = 1.0 MG/DL Urine Leukocyte Esterase 2+ H NEGATIVE Urine RBC (Auto) 3+ H NEGATIVE Urine RBC /HPF Urine WBC TNTC H /HPF Urine Crystals NONE /LPF Urine Bacteria /HPF Urine Casts NONE /LPF Urine Mucus NEGATIVE /LPF Urine Culture Indicated YES White Blood Count 17.3 H 4.3-11.0 10^3/uL Red Blood Count 4.30 3.80-5.11 10^6/uL Hemoglobin 12.6 11.5-16.0 g/dL Hematocrit 39 35-52 % Mean Corpuscular Volume 91 80-99 fL Mean Corpuscular Hemoglobin 29 25-34 pg Mean Corpuscular Hemoglobin Concent 32 32-36 g/dL Red Cell Distribution Width 12.8 10.0-14.5 % Platelet Count 332 130-400 10^3/uL Mean Platelet Volume 8.6 L 9.0-12.2 fL Immature Granulocyte % (Auto) 1 % Neutrophils (%) (Auto) 75 42-75 % Lymphocytes (%) (Auto) 13 12-44 % Monocytes (%) (Auto) 11 0-12 % Eosinophils (%) (Auto) 1 0-10 % Basophils (%) (Auto) 0 0-10 % Neutrophils # (Auto) 12.9 H 1.8-7.8 10^3/uL Lymphocytes # (Auto) 2.3 1.0-4.0 10^3/uL Monocytes # (Auto) 1.9 H 0.0-1.0 10^3/uL Eosinophils # (Auto) 0.1 0.0-0.3 10^3/uL Basophils # (Auto) 0.0 0.0-0.1 10^3/uL Immature Granulocyte # (Auto) 0.1 0.0-0.1 10^3/uL Neutrophils % (Manual) 75 % Lymphocytes % (Manual) 16 % Monocytes % (Manual) 9 % Sodium Level 135 135-145 MMOL/L Potassium Level 4.2 3.6-5.0 MMOL/L Chloride Level 100 98-107 MMOL/L Carbon Dioxide Level 24 21-32 MMOL/L Anion Gap 11 5-14 MMOL/L Blood Urea Nitrogen 19 H 7-18 MG/DL Creatinine 0.60 0.60-1.30 MG/DL Estimat Glomerular Filtration Rate 103 BUN/Creatinine Ratio 32 Glucose Level 141 H 70-105 MG/DL Calcium Level 9.4 8.5-10.1 MG/DL Corrected Calcium 9.5 8.5-10.1 MG/DL Total Bilirubin 0.3 0.1-1.0 MG/DL Aspartate Amino Transf (AST/SGOT) 39 H 5-34 U/L Alanine Aminotransferase (ALT/SGPT) 34 0-55 U/L Alkaline Phosphatase 82 40-136 U/L Total Protein 7.2 6.4-8.2 GM/DL Albumin 3.9 3.2-4.5 GM/DL Lipase 38 8-78 U/L Lactic Acid Level 1.33 0.50-2.00 MMOL/L My Orders Orders - CHRISTIAN DALTON MD Comprehensive Metabolic Panel (12/17/22 23:45) Lipase (12/17/22 23:45) Ua Culture If Indicated (12/17/22 23:45) Ed Iv/Invasive Line Start (12/17/22 23:45) Cbc With Automated Diff (12/17/22 23:45) Ns Iv 1000 Ml (Sodium Chloride 0.9%) (12/18/22 00:01) Ketorolac Injection (Toradol Injection) (12/18/22 00:01) Ct Abdomen/Pelvis Wo (12/18/22 00:22) Ondansetron Injection (Zofran Injectio (12/18/22 00:22) Ceftriaxone Iv/Im (Rocephin Iv/Im) (12/18/22 00:22) Manual Differential (12/18/22 00:20) Urine Culture (12/17/22 23:30) Lactic Acid Analyzer (12/18/22 01:20) Fentanyl Inj (Sublimaze Injection) (12/18/22 02:21) Rx-Hydrocodone/Apap 5-325 Mg (Rx-Vicodin (12/18/22 02:45) Rx-Ondansetron Po (Rx-Zofran Po) (12/18/22 02:45) Medications Given in ED Current Medications Medications Dose Ordered Sig/Kiki Route Start Time Stop Time Status Last Admin Dose Admin Acetaminophen/ Hydrocodone Bitart 1 ea Q6H PRN PO 12/18/22 02:45 12/18/22 02:57 DC 12/18/22 02:49 1 EA Ondansetron HCl 4 mg Q6H PRN PO 12/18/22 02:45 12/18/22 02:57 DC 12/18/22 02:49 4 MG Vital Signs/I&O 12/17/22 12/18/22 12/18/22 23:30 02:28 02:57 Temp 38.0 38.0 36.9 Pulse 126 95 Resp 20 20 B/P (MAP) 121/77 (92) 118/72 Pulse Ox 97 97 O2 Delivery Room Air Room Air Progress Progress Note #1: Progress Note Potential diagnosis of pyelonephritis, renal colic, diverticulitis, colitis, cholecystitis, cystitis with hematuria. Obtain peripheral IV access and send labs for complete blood count, comprehensive metabolic profile, lipase, urinalysis. Administer normal saline 1 L IV fluid bolus for hydration, Toradol 15 mg IV for pain, Zofran 4 mg IV for nausea and vomiting. CT scan of the abdomen pelvis to evaluate for possible kidney stone versus other pathology in the abdomen pelvis to account for pain. Progress Note #2: Progress Note Patient was still moaning and complaining of pain with ambulating to the [facility] so a dose of fentanyl 50 mcg IV was ordered. Patient's labs did not show an elevated white blood cell count and the comprehensive metabolic profile was stable without acute significant abnormality. Urinalysis did have some blood present. There was improvement in her pain with medication and treatment. However she felt that it did not last very long. On my personal review and interpretation of the CT scan of the abdomen and pelvis without IV contrast I did not appreciate any acute kidney stone or obstruction. I did not see any diverticulitis. Awaiting radiology overread. She did have an elevated white blood cell count on her complete blood count so lactic acid was added to ensure that she was not septic. She had received a gram of Rocephin to help boost the Macrobid for treating UTI. Progress Note #3: Progress Note CT scan of the abdomen pelvis with IV contrast did show some findings with dilated ureter on the right considering she might have passed a stone. Concern for possible urinary tract infection. Patient's lactic acid did finally come back and was not elevated. Her complete blood count was restored. Patient did have improvement in her pain with the fentanyl 50 mcg IV. Patient was counseled on findings and results. As she was feeling better will discharge with a 4 pack of hydrocodone for severe pain and Zofran for nausea and vomiting. Encouraged to keep pushing fluids to help hydrate and flush out infection from the urinary tract system. Counseled on follow-up and return precautions if she was having worsening symptoms. Diagnostic Imaging Diagonstic Imaging: CT Plain Films/CT/US/NM/MRI: abdomen, pelvis Comments CT scan of the abdomen and wrist without IV contrast impression 1. Mild right hydronephrosis likely secondary to a recently passed stone. 2. Cystitis. 3. Small left renal stone. Read by radiologist Dr. Ethan perez MD at 0045 and faxed at [phone] Reviewed: Reviewed by Me Departure Impression Primary Impression: Right flank pain Additional Impressions: Cystitis with hematuria Nausea and vomiting Qualified Codes: R11.2 - Nausea with vomiting, unspecified Disposition: 01 HOME, SELF-CARE Condition: Stable Departure-Patient Inst. Decision time for Depature: 02:39 Referrals: TYLER CORMIER APRN (PCP/Family) Primary Care Physician Patient Instructions: Flank Pain ED, Urinary Tract Infection, Adult ED, Nausea and Vomiting, Adult ED Add. Discharge Instructions: Try to stay well-hydrated and keep drinking plenty of fluids. Use the narcotic pain medicine for severe pain. This can cause constipation so consider taking MiraLAX or laxative. Complete taking the antibiotics to treat for the urine infection. Use the dissolving nausea tablets as needed to help keep your stomach settled. If your symptoms are worsening or not improving check back with the clinic as they may need to do an ultrasound or additional testing beyond what is available through the emergency department. All discharge instructions reviewed with patient and/or family. Voiced understanding. Scripts Ondansetron (Ondansetron Odt) 4 Mg Tab.rapdis 4 MG PO Q6H PRN for NAUSEA/VOMITING for 3 Days, #12 TAB 0 Refills Prov: CHRISTIAN DALTON MD 12/18/22 Hydrocodone/Acetaminophen (Hydrocodone-Acetamin 5-325 mg) 5 Mg-325 Mg Tablet 1 TAB PO Q4H PRN for PAIN SEVERE for 3 Days, #18 TAB 0 Refills Prov: CHRISTIAN DALTON MD 12/18/22 Work/School Note: Work Release Form Date Seen in the Emergency Department: Dec 18, 2022 Return to Work: Dec 20, 2022 Restrictions: Return-No Fever (24hrs), Return-No Vomiting(24hrs) CHRISTIAN DALTON MD Dec 18, 2022 00:25
[2022-12-18 00:32] LABS: CLARITY,URINE CLOUDY; WBC,URINE TNTC /HPF
[2022-12-18 00:38] LABS: ALBUMIN 3.9 GM/DL (3.2-4.5); BILIRUBIN,TOTAL 0.3 MG/DL (0.1-1.0); CALCIUM 9.4 MG/DL (8.5-10.1); CREATININE SERUM 0.6 MG/DL (0.60-1.30); POTASSIUM 4.2 MMOL/L (3.6-5.0); TOTAL PROTEIN 7.2 GM/DL (6.4-8.2)
[2022-12-18 00:47] LABS: LYMPHOCYTES % (MANUAL) 16 %; MONOCYTES % (MANUAL) 9 %; NEUTROPHILS % (MANUAL) 75 %
[2022-12-18] MEDS ORDERED: NITR100C10 PO (01:34)
[2022-12-18] MEDS ORDERED: MONT-40 PO (01:34)
[2022-12-18] MEDS ORDERED: fentaNYL INJ 100 MCG/2 ML AMP IVP STA (02:21)
[2022-12-18] MEDS ORDERED: ACHD5005 PO (02:40)
[2022-12-18] MEDS ORDERED: ONDA4TAB11 PO (02:40)
[2022-12-18] MEDS ORDERED: RX-ONDANSETRON 4 MG ODT (ZOFRAN) PPK #4 PO PRN (02:45)
[2022-12-18 02:57] VITALS: BP 118/72
--- NOTE | 2022-12-18 07:02 | Diagnostic Imaging Report ---
PROCEDURE: CT abdomen and pelvis without contrast. TECHNIQUE: Multiple contiguous axial images were obtained through the abdomen and pelvis without the use of intravenous contrast. Auto Exposure Controls were utilized during the CT exam to meet ALARA standards for radiation dose reduction. INDICATION: Right-sided flank pain. Hematuria. COMPARISON: 02/21/2021. FINDINGS: The heart is unremarkable. The lung bases are clear. There is mild right-sided hydroureteronephrosis without obstructing calculus. No hydronephrosis in the left kidney. A nonobstructing calculus is seen in the left kidney measuring 0.4 cm. The urinary bladder is nondistended. There is bladder wall thickening. No bladder calculi. Stable simple cyst is seen in the central liver. The gallbladder is nondistended. The spleen, pancreas, and adrenal glands have a normal noncontrast CT appearance. There is no pathologically enlarged mesenteric or retroperitoneal adenopathy. The bowel loops are nondilated. The appendix is visualized in the right lower quadrant and has a normal appearance. There is no free fluid or free air. No acute osseous abnormalities. There is no free air, loculated collection, or adenopathy in the pelvis. IMPRESSION: 1. Mild right-sided hydroureteronephrosis without evidence of obstructing calculi. Findings are most suggestive of recently passed stone. Recommend follow-up as indicated. 2. Nonobstructing calculus in the left kidney. Agree with overnight report. Dictated by: Dictated on workstation # [id number]
== END 2022-12-18 02:57 | disposition home or self-care (01) ==
LOC: EDUNIT# 23:25 → ER FS 23:26
DX: N30.91 Cystitis, unspecified with hematuria (principal); N28.89 Other specified disorders of kidney and ureter; N13.2 Hydronephrosis with renal and ureteral calculous obstruction; Z28.310 Unvaccinated for COVID-19
CPT/HCPCS: 36415; 74176; 80053; 81000; 83605; 83690; 85007; 85027; 87088